=== PATIENT | female | born 2000 | race Caucasian/White ===

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

== ENCOUNTER 2019-07-16 15:27 | Inpatient (IN) | payer SELFPAY ==
[2019-07-16] MEDS ORDERED: Water For Irrigation,Sterile 1,000 ML Container IRR PRN (15:40)
[2019-07-16] MEDS ORDERED: Methylergonovine 0.2 MG/1 ML Amp IM PRN (15:40)
[2019-07-16] MEDS ORDERED: Sodium Chloride 0.9% 10 ML Syringe FLUSH PRN (15:40)
[2019-07-16] MEDS ORDERED: Lidocaine 1% 50 ML MDV INJECT PRN (15:40)
[2019-07-16] MEDS ORDERED: Sodium Chloride 0.9% 10 ML SDV IV PRN (15:40)
[2019-07-16] MEDS ORDERED: Sodium Chloride 0.9% 2.5 ML Syringe FLUSH PRN (15:40)
[2019-07-16] MEDS ORDERED: Tranexamic Acid 1,000 MG in Sodium Chloride 0.9% 100 ML IV PRN (15:40)
[2019-07-16] MEDS ORDERED: Carboprost Tromethamine 250 MCG/1 ML Amp IM PRN (15:40)
[2019-07-16] MEDS ORDERED: Misoprostol 200 MCG Tab PO PRN (15:40)
[2019-07-16] MEDS ORDERED: Butorphanol 1 MG/ML SDV IVPUSH PRN (15:40)
[2019-07-16] MEDS ORDERED: Oxytocin/0.9 % Sodium Chloride 30 UNIT/500 ML BAG IV SCH (15:45)
[2019-07-16] MEDS ORDERED: Ampicillin 2 GM in Sodium Chloride 0.9% 100 ML IV ONE (16:09)
--- NOTE | 2019-07-16 16:36 | PCM.LDHP ---
L&D History of Present Illness - General Date of Service: 07/16/19 Admit Problem/Dx: Patient Status Order with Admit Dx/Problem 07/16/19 15:25 Patient Status [ADT] Routine Admission Diagnosis/Problem Admission Diagnosis/Problem Source of Information: Patient History Limitations: Reports: No Limitations - History of Present Illness Improves with: Reports: None Worsens with: Reports: None Associated Symptoms: Reports: N - Related Data Allergies/Adverse Reactions: Allergies Allergy/AdvReac Type Severity Reaction Status Date / Time aspirin Allergy Hives Verified 07/16/19 16:25 ibuprofen Allergy Hives Verified 07/16/19 16:25 Home Medications: Home Meds . [No Known Home Meds] 01/26/18 [History] Past Medical History - Past Health History Medical/Surgical History: Denies Medical/Surgical History Psychiatric History: Reports: Depression - Infectious Disease History Infectious Disease History: Reports: None Social & Family History - Family History Family Medical History: Noncontributory - Caffeine Use Caffeine Use: Reports: Coffee, Energy Drinks H&P Review of Systems - Review of Systems: Review Of Systems: See Below General: Reports: No Symptoms HEENT: Reports: No Symptoms Pulmonary: Reports: No Symptoms Cardiovascular: Reports: No Symptoms Gastrointestinal: Reports: No Symptoms Genitourinary: Reports: No Symptoms Musculoskeletal: Reports: No Symptoms Skin: Reports: No Symptoms Psychiatric: Reports: No Symptoms Neurological: Reports: No Symptoms Hematologic/Lymphatic: Reports: No Symptoms Immunologic: Reports: No Symptoms L&D Exam - Exam Exam: See Below - Vital Signs Weight: 100.698 kg - OB Specific Contraction Intensity: Mild to Moderate Movement: Active Heart Tones: Present Presentation: Vertex - Zuniga Score Zuniga Score Cervix Position: Posterior Zuniga Score Consistency: Soft Zuniga Score Effacement: >80% Zuniga Score Dilation: 1-2 cm Zuniga Score 's Station: -2 Zuniga Score Total: 7 - Exam General: Alert, Oriented HEENT: PERRLA, Conjunctiva Clear, EACs Clear, EOMI, Hearing Intact, Mucosa Moist & [place], Nares Patent, Normal Nasal Septum, Posterior Pharynx Clear, TMs Clear Neck: Supple, Trachea Midline Lungs: Clear to Auscultation, Normal Respiratory Effort Cardiovascular: Regular Rate, Regular Rhythm GI/Abdominal Exam: Normal Bowel Sounds, Soft, Non-Tender, No Organomegaly, No Distention, No Abnormal Bruit, No Mass, Pelvis Stable Rectal Exam: Normal Exam, Normal Rectal Tone Genitourinary: Normal external exam, Normal bimanual exam, Normal speculum exam Back Exam: Normal Inspection, Full Range of Motion Extremities: Normal Inspection, Normal Range of Motion, Non-Tender, No Pedal Edema, Normal Capillary Refill Skin: Warm, Dry, Intact Neurological: Cranial Nerves Intact, Reflexes Equal Bilateral Psychiatric: Alert, Normal Affect, Normal Mood - Patient Data Lab Results Last 24 hrs: Laboratory Results - last 24 hr 07/16/19 07/16/19 Range/Units 15:35 15:59 WBC 16.68 H (4.0-11.0) K/uL RBC 4.37 (4.30-5.90) M/uL Hgb 11.4 L (12.0-16.0) g/dL Hct 35.2 L (36.0-46.0) % MCV 80.5 (80.0-98.0) fL MCH 26.1 L (27.0-32.0) pg MCHC 32.4 (31.0-37.0) g/dL RDW Std Deviation 43.1 (28.0-62.0) fl RDW Coeff of Moy 15 (11.0-15.0) % Plt Count 441 H (150-400) K/uL MPV 9.10 (7.40-12.00) fL Nucleated RBC % 0.0 /100WBC Nucleated RBCs # 0 K/uL Membrane Rupture POSITIVE Result Diagrams: 07/16/19 15:59 Problem List Initiated/Reviewed/Updated: Yes Orders Last 24hrs: Active Orders 24 hr Category Date Time Status Patient Status [ADT] Routine ADT 07/16/19 15:25 Active Heart Tones [RC] CONTINUOUS Care 07/16/19 15:40 Active Non Stress Test [RC] PER UNIT ROUTINE Care 07/16/19 15:40 Active May Shower [RC] ASDIRECTED Care 07/16/19 15:40 Active Notify Provider [RC] PRN Care 07/16/19 15:40 Active Up ad Fátima [RC] ASDIRECTED Care 07/16/19 15:40 Active Vaginal Exam [RC] PRN Care 07/16/19 15:40 Active Vital Signs [RC] PER UNIT ROUTINE Care 07/16/19 15:40 Active RAPID PLASMA REAGIN, QUANT [REF] Routine Lab 07/16/19 15:59 Received TYPE AND SCREEN [BBK] Routine Lab 07/16/19 15:59 Received Ampicillin 2 gm Med 07/16/19 16:09 Active Sodium Chloride 0.9% [Normal Saline] 100 ml IV ONETIME Butorphanol [Stadol] Med 07/16/19 15:40 Active 1 mg IVPUSH ASDIRECTED PRN Carboprost Tromethamine [Hemabate DS] Med 07/16/19 15:40 Active 250 mcg IM ASDIRECTED PRN Lactated Ringers [Ringers, Lactated] 1,000 ml Med 07/16/19 15:45 Active IV ASDIRECTED Lidocaine 1% [Xylocaine 1%] Med 07/16/19 15:40 Active 50 ml INJECT ONETIME PRN Methylergonovine [Methergine] Med 07/16/19 15:40 Active 0.2 mg IM ASDIRECTED PRN Nalbuphine [Nubain] Med 07/16/19 15:40 Active 10 mg IVPUSH ASDIRECTED PRN Oxytocin/0.9 % Sodium Chloride [Oxytocin 30 Unit/500 ML Med 07/16/19 15:45 Active -NS] 30 unit in 500 ml IV TITRATE Sodium Chloride 0.9% [Normal Saline] Med 07/16/19 15:40 Active 10 ml IV ASDIRECTED PRN Sodium Chloride 0.9% [Saline Flush] Med 07/16/19 15:40 Active 10 ml FLUSH ASDIRECTED PRN Sodium Chloride 0.9% [Saline Flush] Med 07/16/19 15:40 Active 2.5 ml FLUSH ASDIRECTED PRN Tranexamic Acid [Cyklokapron] 1,000 mg Med 07/16/19 15:40 Active Sodium Chloride 0.9% [Normal Saline] 100 ml IV ONETIME Water For Irrigation,Sterile [Sterile Water for Med 07/16/19 15:40 Active Irrigation] 1,000 ml IRR ASDIRECTED PRN miSOPROStoL [Cytotec] Med 07/16/19 15:40 Active 200 mcg PO ONETIME PRN Scalp Electrode [WOMSER] Per Unit Routine Oth 07/16/19 15:40 Ordered Peripheral IV Insertion Adult [OM.PC] Routine Oth 07/16/19 15:40 Ordered Resuscitation Status Routine Resus Stat 07/16/19 15:40 Ordered Medication Orders Butorphanol Tartrate (Stadol) 1 mg IVPUSH ASDIRECTED PRN PRN Reason: Pain Carboprost Tromethamine (Hemabate Ds) 250 mcg IM ASDIRECTED PRN PRN Reason: Post Hemorrhage Lactated Ringer's (Ringers, Lactated) 1,000 mls @ 150 mls/hr IV ASDIRECTED JUSTICE Oxytocin/Sodium Chloride (Oxytocin 30 Unit/500 Ml-Ns) 30 unit in 500 mls @ 999 mls/hr IV TITRATE JUSTICE Tranexamic Acid 1,000 mg/ (Sodium Chloride) 110 mls @ 660 mls/hr IV ONETIME PRN PRN Reason: Bleeding Ampicillin Sodium 2 gm/ Sodium (Chloride) 100 mls @ 200 mls/hr IV ONETIME ONE Stop: 07/16/19 16:38 Last Admin: 07/16/19 16:24 Dose: 200 mls/hr Lidocaine HCl (Xylocaine 1%) 50 ml INJECT ONETIME PRN PRN Reason: Laceration repair Methylergonovine Maleate (Methergine) 0.2 mg IM ASDIRECTED PRN PRN Reason: Post Hemorrhage Misoprostol (Cytotec) 200 mcg PO ONETIME PRN PRN Reason: Post Hemorrhage Nalbuphine HCl (Nubain) 10 mg IVPUSH ASDIRECTED PRN PRN Reason: Pain (severe 7-10) Sodium Chloride (Saline Flush) 10 ml FLUSH ASDIRECTED PRN PRN Reason: Keep Vein Open Sodium Chloride (Saline Flush) 2.5 ml FLUSH ASDIRECTED PRN PRN Reason: Keep Vein Open Sodium Chloride (Normal Saline) 10 ml IV ASDIRECTED PRN PRN Reason: IV Use Sterile Water (Sterile Water For Irrigation) 1,000 ml IRR ASDIRECTED PRN PRN Reason: delivery Assessment/Plan Comment:: [id number] SROM, GBS status is unknown. Plan to admit, start on antibiotic and do Extractant management.
[2019-07-16] MEDS: Lactated Ringers 1,000 ML IV SCH (16:48)
[2019-07-16] MEDS: Nalbuphine 10 MG/1 ML Vial IVPUSH PRN (17:15)
[2019-07-16] MEDS: Ampicillin 1 GM in Sodium Chloride 0.9% 50 ML IV SCH (20:29)
[2019-07-17] MEDS: Ampicillin 1 GM in Sodium Chloride 0.9% 50 ML IV SCH ×3 (00:33→08:30)
[2019-07-17] MEDS: Nalbuphine 10 MG/1 ML Vial IVPUSH PRN (01:55)
[2019-07-17] MEDS: Lactated Ringers 1,000 ML IV SCH (02:01)
[2019-07-17] MEDS ORDERED: fentaNYL 100 MCG/2 ML SDV ONE (02:48)
[2019-07-17] MEDS ORDERED: Ropivacaine HCl/PF 100 ML ONE (02:49)
--- NOTE | 2019-07-17 03:11 | PCM.PREANE ---
Preanesthetic Assessment - Anesthesia/Transfusion/Family Hx Anesthesia History: No Prior Anesthesia Family History of Anesthesia Reaction: No - Physical Assessment NPO Status Date: 07/17/19 NPO Status Time: 01:00 Height: 1.73 m Weight: 100.698 kg ASA Class: 2 Mental Status: Alert & Oriented x3 Dentition: Reports: Normal Dentition - Lab Values: Laboratory Last Values WBC 16.68 K/uL (4.0-11.0) H 07/16/19 15:59 RBC 4.37 M/uL (4.30-5.90) 07/16/19 15:59 Hgb 11.4 g/dL (12.0-16.0) L 07/16/19 15:59 Hct 35.2 % (36.0-46.0) L 07/16/19 15:59 MCV 80.5 fL (80.0-98.0) 07/16/19 15:59 MCH 26.1 pg (27.0-32.0) L 07/16/19 15:59 MCHC 32.4 g/dL (31.0-37.0) 07/16/19 15:59 RDW Std Deviation 43.1 fl (28.0-62.0) 07/16/19 15:59 RDW Coeff of Moy 15 % (11.0-15.0) 07/16/19 15:59 Plt Count 441 K/uL (150-400) H 07/16/19 15:59 MPV 9.10 fL (7.40-12.00) 07/16/19 15:59 Nucleated RBC % 0.0 /100WBC 07/16/19 15:59 Nucleated RBCs # 0 K/uL 07/16/19 15:59 Membrane Rupture POSITIVE 07/16/19 15:35 Blood Type O POSITIVE 07/16/19 15:59 Antibody Screen NEGATIVE 07/16/19 15:59 - Allergies Allergies/Adverse Reactions: Allergies Allergy/AdvReac Type Severity Reaction Status Date / Time aspirin Allergy Hives Verified 07/16/19 16:25 ibuprofen Allergy Hives Verified 07/16/19 16:25 - Acknowledgements Anesthesia Type Planned: Epidural Pt an Appropriate Candidate for the Planned Anesthesia: Yes Alternatives and Risks of Anesthesia Discussed w Pt/Guardian: Yes Pt/Guardian Understands and Agrees with Anesthesia Plan: Yes PreAnesthesia Questionnaire - Past Health History Medical/Surgical History: Denies Medical/Surgical History Psychiatric History: Reports: Depression - Infectious Disease History Infectious Disease History: Reports: None - SUBSTANCE USE Smoking Status *Q: Never Smoker Recreational Drug Use History: No - HOME MEDS Home Medications: Home Meds . [No Known Home Meds] 01/26/18 [History] - CURRENT (IN HOUSE) MEDS Current Meds: Current Medications Butorphanol Tartrate (Stadol) 1 mg IVPUSH ASDIRECTED PRN PRN Reason: Pain Carboprost Tromethamine (Hemabate Ds) 250 mcg IM ASDIRECTED PRN PRN Reason: Post Hemorrhage Lactated Ringer's (Ringers, Lactated) 1,000 mls @ 150 mls/hr IV ASDIRECTED [facility] Last Admin: 07/17/19 02:01 Dose: 999 mls/hr Oxytocin/Sodium Chloride (Oxytocin 30 Unit/500 Ml-Ns) 30 unit in 500 mls @ 999 mls/hr IV TITRATE [facility] Last Admin: 07/17/19 00:42 Dose: 2 mls/hr Tranexamic Acid 1,000 mg/ (Sodium Chloride) 110 mls @ 660 mls/hr IV ONETIME PRN PRN Reason: Bleeding Ampicillin Sodium 1 gm/ Sodium (Chloride) 50 mls @ 100 mls/hr IV Q4H [facility] Last Admin: 07/17/19 00:33 Dose: 100 mls/hr Lidocaine HCl (Xylocaine 1%) 50 ml INJECT ONETIME PRN PRN Reason: Laceration repair Methylergonovine Maleate (Methergine) 0.2 mg IM ASDIRECTED PRN PRN Reason: Post Hemorrhage Misoprostol (Cytotec) 200 mcg PO ONETIME PRN PRN Reason: Post Hemorrhage Nalbuphine HCl (Nubain) 10 mg IVPUSH ASDIRECTED PRN PRN Reason: Pain (severe 7-10) Last Admin: 07/17/19 01:55 Dose: 10 mg Sodium Chloride (Saline Flush) 10 ml FLUSH ASDIRECTED PRN PRN Reason: Keep Vein Open Sodium Chloride (Saline Flush) 2.5 ml FLUSH ASDIRECTED PRN PRN Reason: Keep Vein Open Sodium Chloride (Normal Saline) 10 ml IV ASDIRECTED PRN PRN Reason: IV Use Sterile Water (Sterile Water For Irrigation) 1,000 ml IRR ASDIRECTED PRN PRN Reason: delivery Discontinued Medications Fentanyl (Sublimaze) Confirm Administered Dose 100 mcg .ROUTE .STK-MED ONE Stop: 07/17/19 02:49 Ampicillin Sodium 2 gm/ Sodium (Chloride) 100 mls @ 200 mls/hr IV ONETIME ONE Stop: 07/16/19 16:38 Last Admin: 07/16/19 16:24 Dose: 200 mls/hr Ropivacaine (Naropin 0.2%) Confirm Administered Dose 100 mls @ as directed .ROUTE .STK-MED ONE Stop: 07/17/19 02:50
--- NOTE | 2019-07-17 03:14 | PCM.PRNOTE ---
- Free Text/Narrative Note: Anes Note Patient requests epidural for L&D> Sitting position. Level L3-L3 midline approach. Sterile technique. Chloraprep scrub to lumbar area. Sterile fenestrated drape applied. Epidural space easily achieved single attempt with ease using LOW technique. LOW at 4 cm. Cath threaded 5 cm with ease. Cath secured at skin at 9 cm using clear sterile adhesive dressing. 0302 Test 3 cc 1.5% lido with epi negatvice 0305 load 10 cc 0.2 % ropivicaine with 1 mcg cc fentanyl in slow divided doses. Pump started same solution at 8 cc hr with 6 cc q 20 min prn bolus. Lakisha well. Time with patient [id number] Lan Harris CRNA
[2019-07-17] MEDS ORDERED: Bisacodyl 10 MG Supp RECTAL PRN (10:40)
[2019-07-17] MEDS ORDERED: Acetaminophen 500 MG Tab PO PRN ×2 (10:40)
[2019-07-17] MEDS ORDERED: Lanolin 100% Cream 7 GM Tube TOP PRN (10:40)
[2019-07-17] MEDS ORDERED: oxyCODONE 5 MG Tab PO PRN (10:40)
[2019-07-17] MEDS ORDERED: Docusate Sodium 100 MG Cap PO PRN (10:40)
[2019-07-17] MEDS ORDERED: Ibuprofen 400 MG Tab PO PRN (10:40)
[2019-07-17] MEDS: Ibuprofen 800 MG Tab PO PRN ×2 (11:19→18:46)
[2019-07-17] MEDS: Witch Hazel Medicated Pads 40/Jar TOP PRN (11:19)
[2019-07-17] MEDS: Benzocaine/Menthol 20%-0.5% Spray 78 GM Cannister TOP PRN (11:21)
--- NOTE | 2019-07-17 12:34 | OR ---
SURGEON: Anil Scott MD DATE OF PROCEDURE: 07/17/2019 Ms. Vaughn is 19-year-old patient primigravida. She is followed in our clinic primarily by our nurse american history teacher, Miesha Sage. She is 36 weeks + 2. She had spontaneous rupture of the membrane that was confirmed by [facility]. The patient admitted. At the time of admission, she was 2 to 3 cm vertex out of the pelvis and the patient's GBS status is unknown, so we started her on antibiotic as per protocol. The patient initially went through the latent phase slowly and then she progressed to 3 to 4, 80 vertex, and -3. The patient had epidural anesthesia for labor analgesia. Then, she required Pitocin augmentation, which we started at midnight as per protocol. The patient continued to progress and she virtually became complete, complete, and she was able to accomplish a normal spontaneous vaginal delivery of a male fetus, cried immediately. score reported to be 8 and 9. The weight is not available. The placenta delivered spontaneous, complete, and intact without any problem. There was no perineal, labial, or vaginal laceration. Episiotomy was not needed. Estimated blood loss 300 to 350 mL. heart rate was category 1 through the entire process of labor. There was no complication in the labor and delivery process. JAVIER / OBED /[id number]
[2019-07-18] MEDS: Ibuprofen 800 MG Tab PO PRN (07:38)
[2019-07-18] MEDS: Benzocaine/Menthol 20%-0.5% Spray 78 GM Cannister TOP PRN (07:39)
[2019-07-18] MEDS: Witch Hazel Medicated Pads 40/Jar TOP PRN (07:39)
--- NOTE | 2019-07-18 08:27 | PCM.DCSUM1 ---
Discharge Summary - Hospital Course Free Text/Narrative:: Discharge home, follow up in 6 weeks for . Diagnosis: Stroke: No Modified Rodri Scale: No Symptoms at All Modified Rodri Scale Score: 0 - Discharge Data Discharge Date: 07/18/19 Discharge Disposition: Home, Self-Care 01 Condition: Good - Referral to Home Health Primary Care Physician: PCP None - Discharge Diagnosis/Problem(s) (1) Supervision of normal IUP (intrauterine ) in primigravida SNOMED Code(s): 67702430, [id number], [id number], [id number] ICD Code: Z34.00 - ENCNTR FOR SUPRVSN OF NORMAL FIRST , UNSP TRIMESTER Status: Acute Priority: High Current Visit: Yes Qualifiers: Trimester: third trimester Qualified Code(s): Z34.03 - Encounter for supervision of normal first , third trimester (2) (normal spontaneous vaginal delivery) SNOMED Code(s): 36741340, [id number] ICD Code: O80 - ENCOUNTER FOR FULL-TERM UNCOMPLICATED DELIVERY Status: Acute Priority: High Current Visit: Yes - Patient Instructions Diet: Usual Diet as Tolerated Activity: As Tolerated, No Strenuous Activities, Rest and Relax Today Driving: May Drive Today Showering/Bathing: May Shower Notify Provider of: Fever, Increased Pain, Swelling and Redness, Nausea and/or Vomiting Other/Special Instructions: Discharge home, follow up in 6 weeks for . - Discharge Plan *PRESCRIPTION DRUG MONITORING PROGRAM REVIEWED*: Not Applicable *COPY OF PRESCRIPTION DRUG MONITORING REPORT IN PATIENT HORACIO: Not Applicable Home Medications: Home Meds . [No Known Home Meds] 01/26/18 [History] Oxygen Therapy Mode: Room Air Patient Handouts: and Self-Care, [id number], Vaginal Delivery, Care After Referrals: Miesha Sage CNM [Mid-] - (Please contact [facility] to schedule your 6 week appointment. ) - Discharge Summary/Plan Comment DC Time >30 min.: Yes - General Info Date of Service: 07/18/19 Admission Dx/Problem (Free Text: Patient Status Order with Admit Dx/Problem 07/16/19 15:25 Patient Status [ADT] Routine Admission Diagnosis/Problem Admission Diagnosis/Problem Functional Status: Reports: Pain Controlled, Tolerating Diet, Ambulating, Urinating - Review of Systems General: Reports: No Symptoms HEENT: Reports: No Symptoms Pulmonary: Reports: No Symptoms Cardiovascular: Reports: No Symptoms Gastrointestinal: Reports: No Symptoms Genitourinary: Reports: No Symptoms Musculoskeletal: Reports: No Symptoms Skin: Reports: No Symptoms Neurological: Reports: No Symptoms Psychiatric: Reports: No Symptoms - Patient Data Vitals - Most Recent: Last Vital Signs Temp 36.3 C 07/18/19 04:43 Pulse 97 07/18/19 04:43 Resp 16 07/18/19 04:43 BP 141/72 H 07/18/19 04:43 Pulse Ox 100 07/18/19 04:43 Weight - Most Recent: 100.698 kg Lab Results - Last 24 hrs: Laboratory Results - last 24 hr 07/18/19 Range/Units 05:58 Hgb 9.8 L (12.0-16.0) g/dL Hct 31.1 L (36.0-46.0) % Med Orders - Current: Current Medications Acetaminophen (Tylenol Extra Strength) 500 mg PO Q4H PRN PRN Reason: Pain Acetaminophen (Tylenol Extra Strength) 1,000 mg PO Q4H PRN PRN Reason: Pain Last Admin: 07/18/19 01:59 Dose: 1,000 mg Benzocaine/Menthol (Dermoplast Pain Relief 20%-0.5% [place]) 78 gm TOP ASDIRECTED PRN PRN Reason: Perineal Comfort Measure Last Admin: 07/18/19 07:39 Dose: 1 can Bisacodyl (Dulcolax) 10 mg RECTAL ONETIME PRN PRN Reason: Constipation Carboprost Tromethamine (Hemabate Ds) 250 mcg IM ASDIRECTED PRN PRN Reason: Post Hemorrhage Docusate Sodium (Colace) 100 mg PO BID PRN PRN Reason: Constipation Emollient Ointment (Lansinoh Hpa) 0 gm TOP ASDIRECTED PRN PRN Reason: Sore Nipples Oxytocin/Sodium Chloride (Oxytocin 30 Unit/500 Ml-Ns) 30 unit in 500 mls @ 999 mls/hr IV TITRATE JUSTICE Last Admin: 07/17/19 00:42 Dose: 2 mls/hr Tranexamic Acid 1,000 mg/ (Sodium Chloride) 110 mls @ 660 mls/hr IV ONETIME PRN PRN Reason: Bleeding Ibuprofen (Motrin) 400 mg PO Q4H PRN PRN Reason: Pain Ibuprofen (Motrin) 800 mg PO Q6H PRN PRN Reason: Pain Last Admin: 07/18/19 07:38 Dose: 800 mg Methylergonovine Maleate (Methergine) 0.2 mg IM ASDIRECTED PRN PRN Reason: Post Hemorrhage Misoprostol (Cytotec) 200 mcg PO ONETIME PRN PRN Reason: Post Hemorrhage Oxycodone HCl (Oxycodone) 5 mg PO Q2H PRN PRN Reason: Pain Witch Kenzie (Tucks) 1 pad TOP ASDIRECTED PRN PRN Reason: comfort care Last Admin: 07/18/19 07:39 Dose: 1 tub Discontinued Medications Butorphanol Tartrate (Stadol) 1 mg IVPUSH ASDIRECTED PRN PRN Reason: Pain Fentanyl (Sublimaze) Confirm Administered Dose 100 mcg .ROUTE .STK-MED ONE Stop: 07/17/19 02:49 Lactated Ringer's (Ringers, Lactated) 1,000 mls @ 150 mls/hr IV ASDIRECTED [facility] Last Admin: 07/17/19 02:01 Dose: 999 mls/hr Ampicillin Sodium 2 gm/ Sodium (Chloride) 100 mls @ 200 mls/hr IV ONETIME ONE Stop: 07/16/19 16:38 Last Admin: 07/16/19 16:24 Dose: 200 mls/hr Ampicillin Sodium 1 gm/ Sodium (Chloride) 50 mls @ 100 mls/hr IV Q4H [facility] Last Admin: 07/17/19 08:30 Dose: 100 mls/hr Ropivacaine (Naropin 0.2%) Confirm Administered Dose 100 mls @ as directed .ROUTE .STK-MED ONE Stop: 07/17/19 02:50 Lidocaine HCl (Xylocaine 1%) 50 ml INJECT ONETIME PRN PRN Reason: Laceration repair Nalbuphine HCl (Nubain) 10 mg IVPUSH ASDIRECTED PRN PRN Reason: Pain (severe 7-10) Last Admin: 07/17/19 01:55 Dose: 10 mg Sodium Chloride (Saline Flush) 10 ml FLUSH ASDIRECTED PRN PRN Reason: Keep Vein Open Sodium Chloride (Saline Flush) 2.5 ml FLUSH ASDIRECTED PRN PRN Reason: Keep Vein Open Sodium Chloride (Normal Saline) 10 ml IV ASDIRECTED PRN PRN Reason: IV Use Sterile Water (Sterile Water For Irrigation) 1,000 ml IRR ASDIRECTED PRN PRN Reason: delivery - Exam General: Reports: Alert, Oriented, Cooperative, No Acute Distress Lungs: Reports: Normal Respiratory Effort GI/Abdominal Exam: Soft, Non-Tender, Pelvis Stable (Female) Exam: Deferred, Vaginal Bleeding Rectal (Female) Exam: Deferred Back Exam: Reports: Full Range of Motion Extremities: Normal Range of Motion, Non-Tender Skin: Reports: Warm, Dry, Intact Neurological: Reports: No New Focal Deficit, Normal Speech, Normal Tone, Strength Equal Bilateral, Sensation Intact Psy/Mental Status: Reports: Alert, Normal Affect, Normal Mood
== END 2019-07-18 09:35 | disposition home or self-care (01) | DRG 807 ==
LOC: MW.OBCHECK 15:27 → MW.OB 15:30 → MW.OBCHECK 15:59 → MW.OB 16:00 → OBSVTOIN 07-17 10:32 → MW.OB 07-17 10:39 → MW.OBCHECK 07-17 10:39 → MW.OB 07-17 16:30
PROVIDERS: ADMIT Obstetrics & Gynecology; ATTEND Obstetrics & Gynecology
PROC: 10E0XZZ Delivery of Products of Conception, External Approach (ICD-10-PCS; principal; 2019-07-17)
DX: O42.013 Preterm premature rupture of membranes, onset of labor within 24 hours of rupture, third trimester (principal); Z37.0 Single live birth; O24.420 Gestational diabetes mellitus in childbirth, diet controlled; Z3A.36 36 weeks gestation of pregnancy; Z88.6 Allergy status to analgesic agent
CPT/HCPCS: 01967; 36415; 51702; 59025; 59409; 84112; 85014; 85018; 85027; 86593; 86850; 86900; 86901; A9270-GY; J0290; J2300; J2590; J2795; J3010; J7030; J7050; J7120

== ENCOUNTER 2021-10-24 16:49 | Emergency (ER) | payer BC, OTHER ==
[2021-10-24] MEDS ORDERED: Sodium Chloride 0.9% 1,000 ML IV ONE (17:05)
[2021-10-24 17:47] LABS: BLOOD UREA NITROGEN,BUN 11 mg/dL (7.0-18.0); CARBON DIOXIDE,CO2 24.9 mmol/L (21.0-32.0); CHLORIDE,CL 102 mmol/L (98-107); GLUCOSE RANDOM 95 mg/dL (74-106); POTASSIUM,K 3.7 mmol/L (3.5-5.1); SODIUM,NA 137 mmol/L (136-145)
[2021-10-24] MEDS ORDERED: metroNIDAZOLE 250 MG Tab PO ONE (19:32)
[2021-10-24] MEDS ORDERED: cefTRIAXone 1 GM in Sodium Chloride 0.9% 50 ML IV ONE (20:09)
[2021-10-28 14:07] LABS: C.TRACHOMATIS BY TMA Negative (Negative); N.GONORRHOEAE BY TMA Negative (Negative)
== END 2021-10-24 21:20 | disposition home or self-care (01) ==
LOC: MW.ED 16:49
DX: N93.9 Abnormal uterine and vaginal bleeding, unspecified (principal); N76.0 Acute vaginitis; N92.0 Excessive and frequent menstruation with regular cycle; D64.9 Anemia, unspecified; N30.01 Acute cystitis with hematuria
CPT/HCPCS: 36415; 76830; 80053; 81001; 84703; 85025; 85610; 87086; 87480; 87491; 87510; 87591; 87660; 96365; 99284; A9270; J0696; J7030

== ENCOUNTER 2021-11-23 20:25 | Emergency (ER) | payer OTHER ==
[2021-11-23 22:30] LABS: BLOOD UREA NITROGEN,BUN 13 mg/dL (7.0-18.0); CARBON DIOXIDE,CO2 23.4 mmol/L (21.0-32.0); CHLORIDE,CL 101 mmol/L (98-107); GLUCOSE RANDOM 150 mg/dL (74-106); POTASSIUM,K 3.4 mmol/L (3.5-5.1); SODIUM,NA 135 mmol/L (136-145)
== END 2021-11-23 23:35 | disposition home or self-care (01) ==
LOC: MW.ED 20:25
DX: N93.8 Other specified abnormal uterine and vaginal bleeding (principal); D64.9 Anemia, unspecified
CPT/HCPCS: 36415; 80053; 81001; 81025; 85025; 87086; 99282; 99284

== ENCOUNTER 2024-02-16 06:35 | Day surgery (SDC) | payer OTHER ==
[2024-02-16] MEDS ORDERED: Lidocaine 1% 20 ML MDV ONE (07:29)
[2024-02-16] MEDS ORDERED: Bupivacaine 0.5% 30 ML SDV ONE (07:29)
[2024-02-16] MEDS: Lactated Ringers 1,000 ML IV SCH (07:45)
[2024-02-16] MEDS ORDERED: ceFAZolin 1 GM Vial ONE (08:05)
[2024-02-16] MEDS: ceFAZolin 2 GM in Sodium Chloride 0.9% 50 ML IV ONE (08:10)
== END 2024-02-16 09:05 | disposition home or self-care (01) ==
LOC: MW.SDS 06:35
PROVIDERS: ATTEND Surgery
DX: L72.3 Sebaceous cyst (principal); F32.A Depression, unspecified; Z79.899 Other long term (current) drug therapy
CPT/HCPCS: 11424; 12042; J0665; J0690; J3490; J7120

== ENCOUNTER 2024-03-06 21:14 | Emergency (ER) | payer OTHER ==
[2024-03-07] MEDS: Cefdinir 300 MG Cap PO ONE (00:56)
== END 2024-03-07 01:03 | disposition home or self-care (01) ==
LOC: MW.ED 21:14
DX: T81.31XA Disruption of external operation (surgical) wound, not elsewhere classified, initial encounter (principal); E66.9 Obesity, unspecified; Z68.37 Body mass index [BMI] 37.0-37.9, adult; Z79.899 Other long term (current) drug therapy; Z90.710 Acquired absence of both cervix and uterus
CPT/HCPCS: 99282; A9270; 99284